=== PATIENT | female | born 1965 | race Caucasian/White ===

== ENCOUNTER → 2023-06-14 16:29 | Outpatient (REF) | payer BC, SELFPAY | LOC: HWRAD 16:29 | PROVIDERS: ATTENDING PHYSICIAN Internal Medicine Critical Care Medicine | DX: J18.9 Pneumonia, unspecified organism (principal); R93.89 Abnormal findings on diagnostic imaging of other specified body structures | CPT/HCPCS: 71046 ==

== ENCOUNTER → 2023-08-03 13:55 | Outpatient (REF) | payer BC, SELFPAY | LOC: HWRAD 13:55 | PROVIDERS: ATTENDING PHYSICIAN Internal Medicine Critical Care Medicine; FAMILY PHYSICIAN Internal Medicine | DX: R93.89 Abnormal findings on diagnostic imaging of other specified body structures (principal); J18.9 Pneumonia, unspecified organism | CPT/HCPCS: 71046 ==

== ENCOUNTER → 2024-01-07 10:14 | Outpatient (REF) | payer BC, SELFPAY | LOC: WDC 10:14 | PROVIDERS: ATTENDING PHYSICIAN Nurse Practitioner Adult Health | DX: N63.21 Unspecified lump in the left breast, upper outer quadrant (principal) | CPT/HCPCS: 76642; 77062; 77066 ==

== ENCOUNTER → 2024-03-14 09:00 | Outpatient (REF) | payer BC, SELFPAY | LOC: RAD 09:00 | PROVIDERS: ATTENDING PHYSICIAN Nurse Practitioner; FAMILY PHYSICIAN Nurse Practitioner Adult Health | DX: N39.0 Urinary tract infection, site not specified (principal) | CPT/HCPCS: 76770; 76856 ==

== ENCOUNTER 2024-09-29 09:16 | Emergency (ER) | payer BC, SELFPAY ==
[2024-09-29 09:18] VITALS: BP 149/80
[2024-09-29 10:19] VITALS: BP 140/89
--- NOTE | 2024-09-29 10:40 | ED.GENMED ---
History of Present Illness
General
Chief Complaint: Pneumonia Symptoms
Source: patient
Exam Limitations: none
Time Seen by Provider: 09/29/24 10:22
Nursing documentation reviewed up to this point in time: agreed with
History of Present Illness
History of Present Illness:
Patient is a 59-year-old female presents to the ER for evaluation. She reports for the past 2 years she has had chronic cough and has been worked up by pulmonology. She is presently a patient of at [facility].
She is being treated for possible MAC. For the past 1 week however she has had increasing cough and feels like she has infection. She has had associated fevers as high as 101.72 days ago. She saw her primary care physician nurse practitioner on
Wednesday 2 days ago was present of [email or web address] Lets Wednesday tablet did not see anything today. She reports on her Apple Watch her pulse ox was around 88% this morning which is what alarmed her and brought her to the ER.
She has been trying to use her albuterol inhaler but because of the coughing cannot get it in. She coughs up as she vomits. In addition she is on Tessalon without relief.
Past History
Past History
ED Past Medical History: None
ED Past Surgical History: None
Social History
Tobacco: Non-smoker
Personal:
Living: with family
Review of Systems
Review of Systems
Allergies reviewed?: Yes
All Other Systems: ROS reviewed and negative except as documented in HPI and ROS
Constitutional: Reports fever; Denies fatigue
Respiratory: Reports cough and trouble breathing
Cardiac: Reports no symptoms
ABD/GI: Reports no symptoms
Musculoskeletal: Reports no symptoms
Skin: Reports no symptoms
Neurological: Reports no symptoms
Psychiatric: Reports no symptoms
Phy Exam
General Physical Exam
General Presentation: no apparent distress
General age: appears stated age
General Skin: warm and dry
General Habitus: normal
General Mental: alert
General Hydration: appears well hydrated
Cardiovascular Exam
Cardiovascular Exam: regular rate/rhythm, no murmur and normal peripheral pulses
Pulmonary Exam
Pulmonary Exam: no respiratory distress and other (+ cough b/l rhonchi )
Neurological Exam
Neurological Exam: alert and oriented x3
Musculoskeletal Exam
Musculoskeletal Exam: full ROM
Skin Exam
Skin Exam: normal color and warm/dry
Psychiatric Exam
Psychiatric Exam: normal mood/affect
Course
Orders/Labs/Results
Orders:
Orders
09/29/24 09:18
EKG [Electrocardiogram (*1)] Urgent
Reason for Study: Chest Pain
09/29/24 09:19
EKG- Treatment ONCE
CXR2 [CR Chest - 2 Views ] Urgent
Comment:
Reason For Exam: cough/chest pain
09/29/24 10:30
CMP [Comprehensive Metabolic Panel] Urgent
Complete Blood Count/With Diff Urgent
09/29/24 10:40
Albuterol Nebs [Ventolin Nebules] 2.5 mg INH R NOW STA
09/29/24 11:53
CefTRIAXone [Rocephin] 1,000 mg IV NOW STA
09/29/24 12:54
Ketorolac [Toradol] 15 mg IV NOW STA
09/29/24 12:55
CT Chest PE Study Urgent
Comment:
Reason For Exam: pain w/ deep breath /fever
Abnormal Lab Results
09/29/24
10:30
RBC 3.81 L 10^6/uL
(4.20-5.40)
Hgb 11.2 L g/dL
(12.0-16.0)
Hct 33.7 L %
(37.0-47.0)
Abs Immat Gran (auto) 0.1 H 10^3/uL
(0-0.05)
Absolute Monos (auto) 0.7 H 10^3/uL
(0.1-0.6)
Immature Gran % 0.9 H %
(0-0.5)
Lymphocytes % 19.4 L %
(20.5-51.1)
Monocytes % 10.7 H %
(1.7-9.3)
Potassium 3.2 L mmol/L
(3.5-5.1)
ALT 44 H U/L
(0-35)
Alkaline Phosphatase 156 H U/L
(38-126)
09/29/24 10:30
09/29/24 10:30
Vital Signs
Initial and Last Documented VS:
Initial Vital Signs
Temp Pulse Resp BP Pulse Ox
98.9 F 92 16 149/80 97
09/29/24 09:18 09/29/24 09:18 09/29/24 09:18 09/29/24 09:18 09/29/24 09:18
Last Documented Vital Signs
Temp Pulse Resp BP Pulse Ox
98.9 F 81 18 129/78 97
09/29/24 09:18 09/29/24 13:30 09/29/24 13:30 09/29/24 11:00 09/29/24 13:30
Caddie consulted with Physician
Caddie consulted with physician?: Yes
Name of Physician Consulted: alicia
MDM/Problems Addressed
MDM/Problems Addressed:
As documented patient is a 59-year-old female who is being followed by [facility] for possible MAC. For the past week however she has noticed increasing cough fevers and has felt sick. X-ray shows bilateral pneumonia. Patient however is
well-appearing nonhypoxic. Patient does have a cough and was given a nebulizer treatment which she does feel worked to help her cough up her secretions. She is afebrile with a normal white count.
She has complained of some pain with deep breaths and bilateral rib pain. CAT scan was done to rule out PE; CAT scan does show multiple areas of peripheral irregular and tree-in-bud opacities bilaterally compatible with infectious or inflammatory
bronchiolitis and superimposed bronchopneumonia. She feels well enough to go home and is not hypoxic. Patient is not hypoxic also with ambulation and not short of breath.
She was given Zithromax by PCP 2 days ago. Will have patient continue on Zithromax but will also order Omnicef for additional coverage patient was given a dose of Rocephin here in the ER will also DC with nebulizer at home since patient has had
improved relief of symptoms.
*Radiology
Radiology exam reviewed: radiology read reviewed
*Pulse Oximetry
Patient hypoxic: no
*EKG
Interpreted by ED Provider?: Yes
Interpretation: abnormal
Comparison EKG: no changes
Heart Rate: 90
Rate: normal
Rhythm: sinus
Ischemia: non-specific ST changes
*Critical Care Note
Total Time (30-74mins, 75-104mins- exclusive of procedures): Not Applicable
ED Attending Note
-
Portions of this chart may have been created with voice recognition software.� Occasional wrong word or��sound alike� substitutions may have occurred due to the inherent limitations of voice recognition software.
Discharge Plan
Departure
Patient Disposition: Home (Routine Discharge)
Date of Disposition: 09/29/24
Time of Disposition: 15:30
Patient with high blood pressure during this ER visit?: Yes
Condition: Fair
Covid-19: Not Applicable
Discharge Problem:
Pneumonia
Instructions: Pneumonia, Adult (DC), BLOOD PRESSURE
Prescriptions:
New
cefdinir 300 mg capsule
300 mg PO BID Qty: 20 0RF
albuterol sulfate 2.5 mg /3 mL (0.083 %) solution for nebulization
2.5 mg inhalation QID PRN (Reason: bronchospasm) Qty: 75 0RF
No Action
fexofenadine [Yasmine Allergy] 60 MG tablet
60 mg PO DAILY
Patient Comments:
otc strength
ie-rnu-CV-Mh-Ha-tbsvfrt-lutein 1 EACH tablet
1 tab PO DAILY
azithromycin 250 MG tablet
250 mg PO DAILY Qty: 6 0RF
oxycodone-acetaminophen 5 MG/325 MG tablet
1 tab PO Q4HPRN PRN (Reason: pain) Qty: 20 0RF
Referrals:
Fannie Allison MD [Family Provider, Internal Medicine]
Activity Restrictions/Additional Instructions:
As discussed CAT scan shows bilateral pneumonia. Stay on Zithromax however additional antibiotic was sent to your pharmacy. In addition a prescription for albuterol Nebules was sent to the pharmacy to use with nebulizer. You may use this every
6 hours as needed for cough, tightness wheezing.
Please follow-up with your family doctor/your territory account manager in the next several days. Return if any worsening of symptoms include increasing shortness of breath fever chills or any further concerns.
In addition your potassium was mildly low here in the ER will need to be rechecked in the next. Please increase foods high in potassium such as orange juice green leafy vegetables bananas potatoes.
Please have additional labs rechecked by your family doctor including your ALT which was minimally elevated and your alkaline phosphatase.
Interventions
Interventions:
*General Assessment Last Done: 09/29/24 10:25
*Neglect/Abuse Screening Last Done: 09/29/24 14:49
*ED- Fall Risk Assessment Last Done: 09/29/24 10:25
*ED COVID-19 Vaccine History Last Done: 09/29/24 14:49
ED- Cardiac Assessment Last Done: 09/29/24 10:25
ED- Pulmonary Assessment Last Done: 09/29/24 10:25
Discharge Date and Time
Print Language: BAHAMIAN
[2024-09-29] MEDS: VENTOLIN NEBULES 2.5 MG INH (10:43)
[2024-09-29 10:51] LABS: % Basophils 0.7 % (0-2); % Eosinophils 5.4 % (0-6); % Immature Granulocytes 0.9 % (0-0.5); % Lymphocytes 19.4 % (20.5-51.1); % Monocytes 10.7 % (1.7-9.3); % Neutrophils 62.9 % (42.2-75.2); Absolute Basophils 0.1 10^3/uL (0-0.2); Absolute Eosinophils 0.4 10^3/uL (0-0.7); Absolute Immature Granulocytes 0.1 10^3/uL (0-0.05); Absolute Lymphocytes 1.3 10^3/uL (1.2-3.4); Absolute Monocytes 0.7 10^3/uL (0.1-0.6); Absolute Neutrophils 4.3 10^3/uL (1.4-6.5); Hematocrit 33.7 % (37.0-47.0); Hemoglobin 11.2 g/dL (12.0-16.0); Mean Corp Hgb Conc. 33.2 g/dL (33.0-37.0); Mean Corpuscular Hgb 29.4 pg (27.0-31.0); Mean Corpuscular Volume 88.5 fL (81.0-99.0); Mean Platelet Volume 9.9 fL (7.4-10.4); Nucleated Red Blood Cells % 0 %; Platelet Count 337 10^3/uL (130-400); Red Blood Cell Count 3.81 10^6/uL (4.20-5.40); Red Cell Dist. Width 13.1 % (11.5-14.5); White Blood Cell Count 6.8 10^3/uL (4.8-10.8)
[2024-09-29 10:54] LABS: ALT (SGPT) 44 U/L (0-35); AST (SGOT) 26 U/L (14-36); Albumin 3.9 g/dl (3.5-5.0); Alkaline Phosphatase 156 U/L (38-126); Blood Urea Nitrogen 7 mg/dl (7-17); Calcium 8.8 mg/dl (8.4-10.2); Carbon Dioxide 30 mmol/L (22-30); Chloride 106 mmol/L (98-107); Glucose 85 mg/dl (70-99); Potassium 3.2 mmol/L (3.5-5.1); Sodium 145 mmol/L (135-145); Total Bilirubin 0.5 mg/dl (0.2-1.3); eGFR > 60.00
[2024-09-29 11:00] VITALS: BP 129/78
[2024-09-29] MEDS: ROCEPHIN 1000 MG IV (11:57)
[2024-09-29] MEDS: TORADOL 15 MG IV (12:59)
[2024-09-29] MEDS: KCL 40 MEQ PO (15:40)
== END 2024-09-29 15:46 | disposition home or self-care (01) ==
LOC: EMR 09:16
PROVIDERS: Nurse Practitioner; EMERGENCY PHYSICIAN Emergency Medicine; FAMILY PHYSICIAN Internal Medicine
DX: J18.9 Pneumonia, unspecified organism (principal)
CPT/HCPCS: 96374; 96375; 94640; 99284; 71046; 71275; 80053; 85025; 93005; Q9967

== ENCOUNTER → 2025-03-20 14:31 | Outpatient (REF) | payer BC, SELFPAY | LOC: HWWDC 14:31 | PROVIDERS: ATTENDING PHYSICIAN Obstetrics & Gynecology; FAMILY PHYSICIAN Nurse Practitioner Adult Health | DX: Z12.31 Encounter for screening mammogram for malignant neoplasm of breast (principal) | CPT/HCPCS: 77063; 77067 ==